=== PATIENT | female | born 1980 | race Caucasian/White ===

== ENCOUNTER → 2016-09-14 | Outpatient (CLI) | payer BC, MEDICAID | LOC: OD 07:40 | PROVIDERS: ATTEND Internal Medicine | DX: L65.9 Nonscarring hair loss, unspecified (principal) | CPT/HCPCS: 36415; 82728; 84443 ==

== ENCOUNTER → 2018-03-09 | Outpatient (CLI) | payer BC ==
[2018-03-09 10:06] LABS: ABSOLUTE EOSINOPHILS # (AUTO) 0.1 10^3/uL (0.0-0.6); ABSOLUTE LYMPHOCYTES (AUTO) 1.5 10^3/uL (0.5-4.7); ABSOLUTE MONOCYTES (AUTO) 0.3 10^3/uL (0.1-1.4); ABSOLUTE NEUT (AUTO) 1.3 10^3/uL (1.7-8.2); BASOPHILS % (AUTO) 0.9 % (0-2); EOSINOPHILS % (AUTO) 2.8 % (0-6); HEMATOCRIT 41.1 % (36.0-47.0); HEMOGLOBIN 14.1 g/dL (12.0-15.5); LYMPHOCYTES % (AUTO) 46.3 % (13-45); MEAN CORPUSCULAR HEMOGLOBIN 31.4 pg (27.0-33.4); MEAN CORPUSCULAR HGB CONC 34.3 g/dL (32.0-36.0); MEAN CORPUSCULAR VOLUME 92 fl (80-97); MONOCYTES % (AUTO) 10.2 % (3-13); PLATELET COUNT 215 10^3/uL (150-450); RED BLOOD COUNT 4.49 10^6/uL (3.72-5.28); RED CELL DISTRIBUTION WIDTH 13.2 % (11.5-14.0); SEGMENTED NEUTROPHILS % (AUTO) 39.8 % (42-78); TOTAL CELLS COUNTED % (AUTO) 100 %; WHITE BLOOD COUNT 3.2 10^3/uL (4.0-10.5)
[2018-03-09 10:35] LABS: ALANINE AMINOTRANSFERASE 18 U/L (9-52); ALBUMIN 4.3 g/dL (3.5-5.0); ALKALINE PHOSPHATASE 53 U/L (38-126); ANION GAP 12 (5-19); ASPARTATE AMINO TRANSFERASE 23 U/L (14-36); BILIRUBIN,DIRECT 0.2 mg/dL (0.0-0.4); BILIRUBIN,TOTAL 0.7 mg/dL (0.2-1.3); BLOOD UREA NITROGEN 13 mg/dL (7-20); CALCIUM 9.4 mg/dL (8.4-10.2); CARBON DIOXIDE 27 mmol/L (22-30); CHLORIDE 104 mmol/L (98-107); CHOLESTEROL 180.44 mg/dL (0-200); GLUCOSE 78 mg/dL (75-110); POTASSIUM 4.2 mmol/L (3.6-5.0); SODIUM 142.5 mmol/L (137-145); TOTAL PROTEIN 7.1 g/dL (6.3-8.2); TRIGLYCERIDES 72 mg/dL (<150); URIC ACID 3.7 mg/dL (2.5-7.0)
[2018-03-09 10:46] LABS: DIRECT LDL 86 mg/dL (<100)
[2018-03-09 10:50] LABS: FREE T3 3.27 pg/mL (2.77-5.27); FREE T4 (FREE THYROXINE) 1.14 ng/dL (0.78-2.19)
[2018-03-09 11:04] LABS: THYROID STIMULATING HORMONE 2.22 uIU/mL (0.47-4.68)
[2018-03-12 10:38] LABS: ANTICHROMATIN AB <0.2 AI (0.0-0.9); CENTROMERE B AB <0.2 AI (0.0-0.9); JO-1 ANTIBODY (ANACOMP) <0.2 AI (0.0-0.9); SJOGREN'S ANTI-SS-B AB 0.5 AI (0.0-0.9); SJOGREN'S SS-A ANTIBODY 1.3 AI (0.0-0.9)
[2018-03-13 07:05] LABS: DNA DOUBLE STRAND ANTIBODY ANA 4 IU/mL (0-9)
== END ==
LOC: OD 08:45
PROVIDERS: ATTEND Family Medicine Geriatric Medicine
DX: M94.0 Chondrocostal junction syndrome [Tietze] (principal); R07.9 Chest pain, unspecified; M25.50 Pain in unspecified joint; D64.9 Anemia, unspecified; Z79.899 Other long term (current) drug therapy; Z87.59 Personal history of other complications of pregnancy, childbirth and the puerperium; Z29.9 Encounter for prophylactic measures, unspecified; R63.5 Abnormal weight gain
CPT/HCPCS: 36415; 80053; 80061; 84439; 84443; 84481; 84550; 85025; 86060; 86225; 86235; 86430

== ENCOUNTER → 2018-03-19 | Outpatient (CLI) | payer BC ==
[2018-03-19 08:51] LABS: ABSOLUTE EOSINOPHILS # (AUTO) 0.3 10^3/uL (0.0-0.6); ABSOLUTE LYMPHOCYTES (AUTO) 1.6 10^3/uL (0.5-4.7); ABSOLUTE MONOCYTES (AUTO) 0.3 10^3/uL (0.1-1.4); ABSOLUTE NEUT (AUTO) 1.4 10^3/uL (1.7-8.2); BASOPHILS % (AUTO) 0.7 % (0-2); EOSINOPHILS % (AUTO) 7.9 % (0-6); HEMATOCRIT 40.2 % (36.0-47.0); HEMOGLOBIN 13.7 g/dL (12.0-15.5); LYMPHOCYTES % (AUTO) 43.8 % (13-45); MEAN CORPUSCULAR HEMOGLOBIN 31.5 pg (27.0-33.4); MEAN CORPUSCULAR HGB CONC 34.1 g/dL (32.0-36.0); MEAN CORPUSCULAR VOLUME 92 fl (80-97); MONOCYTES % (AUTO) 9.1 % (3-13); PLATELET COUNT 228 10^3/uL (150-450); RED BLOOD COUNT 4.36 10^6/uL (3.72-5.28); RED CELL DISTRIBUTION WIDTH 13.4 % (11.5-14.0); SEGMENTED NEUTROPHILS % (AUTO) 38.5 % (42-78); TOTAL CELLS COUNTED % (AUTO) 100 %; WHITE BLOOD COUNT 3.6 10^3/uL (4.0-10.5)
--- NOTE | 2018-03-19 21:57 | XCELERA REPORT ---
[address] [address] Transthoracic Echocardiogram Report Name: RACHAEL TIAN Age: 37 yrs Gender: Female : 1980 Patient Status: Outpatient Patient Location: Study Date: 03/19/2018 09:02 AM Procedure: A two-dimensional transthoracic echocardiogram with color flow and Doppler was performed. Images were not obtained from all of the standard acoustic windows due to the limited scope of the study. Reason For Study: SOB History: Shortness of breath. Ordering Physician: JULIA SAM Performed By: Marina Toro Interpretation Summary Images were not obtained from all of the standard acoustic windows due to the limited scope of the study. Shortness of breath The left ventricle is normal in size. There is normal left ventricular wall thickness. No True apical 2 chamber views obtained.Hence cannot comment on the apical anterior , the basal anterior, the basal inferior and apical inferior greenfield.The mid anterior , the mid inferior and the rest of the LV greenfield contract normally. .Normal LVEF is normal and is greater thn 60% in the limited views. Doppler measurements suggest normal left ventricular diastolic function There is no thrombus. There is no ventricular septal defect visualized. The right ventricle is normal in size and function. The right atrium is normal. The left atrial size is normal. The interatrial septum is intact with no evidence for an atrial septal defect. There is no evidence of mitral valve prolapse. There is no vegetation seen on the mitral valve. There is no mitral valve stenosis. There is no mitral regurgitation noted. The aortic valve is trileaflet. The aortic valve opens well. There is no aortic valvular vegetation. The aortic valve is normal in structure and functions normally There is no aortic valve stenosis There is no LVOT obstruction. No aortic regurgitation is present. There is no tricuspid stenosis. Right ventricular systolic pressure is normal. RVSP is 20 to 25 mm of Hg , with RA mean of 5 to 10. There is no pulmonic valvular stenosis. There is no pulmonic valvular regurgitation. The aortic root is normal size. The inferior vena cava appeared normal and decreased > 50% with respiration (RAP 5-10 mmHg) There is no pericardial effusion. MMode/2D Measurements & Calculations RVDd: 2.7 cm LVIDd: 4.6 cm FS: 39.8 % Ao root diam: 2.9 cm IVSd: 0.62 cm LVIDs: 2.8 cm EDV(Teich): 97.6 ml Ao root area: 6.7 cm2 LVPWd: 0.89 cm ESV(Teich): 28.9 ml EF(Teich): 70.4 % Doppler Measurements & Calculations MV E max audra: MV dec slope: Ao V2 max: LV V1 max P.7 cm/sec 116.1 cm/sec 4.2 mmHg MV A max audra: 687.7 cm/sec2 Ao max PG: LV V1 max: 47.5 cm/sec MV dec time: 0.16 sec5.4 mmHg 102.9 cm/sec MV E/A: 2.3 PA V2 max: TR max audra: 83.3 cm/sec 192.3 cm/sec PA max P.8 mmHg TR max P.8 mmHg Left Ventricle The left ventricle is normal in size. There is normal left ventricular wall thickness. No True apical 2 chamber views obtained.Hence cannot comment on the apical anterior , the basal anterior, the basal inferior and apical inferior greenfield.The mid anterior , the mid inferior and the rest of the LV greenfield contract normally. .Normal LVEF is normal and is greater thn 60% in the limited views. Doppler measurements suggest normal left ventricular diastolic function. There is no thrombus. There is no ventricular septal defect visualized. Right Ventricle The right ventricle is normal in size and function. Atria The right atrium is normal. The left atrial size is normal. The interatrial septum is intact with no evidence for an atrial septal defect. Mitral Valve There is no evidence of mitral valve prolapse. There is no vegetation seen on the mitral valve. There is no mitral valve stenosis. There is no mitral regurgitation noted. Aortic Valve The aortic valve is trileaflet. The aortic valve opens well. The aortic valve is normal in structure and functions normally. There is no aortic valvular vegetation. There is no aortic valve stenosis. There is no LVOT obstruction. No aortic regurgitation is present. Tricuspid Valve There is no tricuspid stenosis. There is a trace amount of tricuspid regurgitation. Right ventricular systolic pressure is normal. RVSP is 20 to 25 mm of Hg , with RA mean of 5 to 10. Pulmonic Valve There is no pulmonic valvular stenosis. There is no pulmonic valvular regurgitation. Great Vessels The aortic root is normal size. The inferior vena cava appeared normal and decreased > 50% with respiration (RAP 5-10 mmHg). Effusions There is no pericardial effusion. : JULIA SAM > Perlita, Eleanor
== END ==
LOC: SP 07:55
PROVIDERS: ATTEND Family Medicine Geriatric Medicine
DX: R06.02 Shortness of breath (principal); R79.89 Other specified abnormal findings of blood chemistry
CPT/HCPCS: 36415; 85025; 93306

== ENCOUNTER → 2018-03-27 | Outpatient (CLI) | payer BC ==
[2018-03-27 12:50] LABS: ABSOLUTE EOSINOPHILS # (AUTO) 0.1 10^3/uL (0.0-0.6); ABSOLUTE LYMPHOCYTES (AUTO) 1.8 10^3/uL (0.5-4.7); ABSOLUTE MONOCYTES (AUTO) 0.3 10^3/uL (0.1-1.4); ABSOLUTE NEUT (AUTO) 1.5 10^3/uL (1.7-8.2); BASOPHILS % (AUTO) 1.1 % (0-2); EOSINOPHILS % (AUTO) 3.1 % (0-6); HEMATOCRIT 39.8 % (36.0-47.0); HEMOGLOBIN 13.5 g/dL (12.0-15.5); LYMPHOCYTES % (AUTO) 48.1 % (13-45); MEAN CORPUSCULAR HEMOGLOBIN 31.1 pg (27.0-33.4); MEAN CORPUSCULAR HGB CONC 33.9 g/dL (32.0-36.0); MEAN CORPUSCULAR VOLUME 92 fl (80-97); MONOCYTES % (AUTO) 8.8 % (3-13); PLATELET COUNT 235 10^3/uL (150-450); RED BLOOD COUNT 4.33 10^6/uL (3.72-5.28); RED CELL DISTRIBUTION WIDTH 13.4 % (11.5-14.0); SEGMENTED NEUTROPHILS % (AUTO) 38.9 % (42-78); TOTAL CELLS COUNTED % (AUTO) 100 %; WHITE BLOOD COUNT 3.8 10^3/uL (4.0-10.5)
[2018-03-27 12:55] LABS: APPEARANCE,URINE CLOUDY; BILIRUBIN,URINE NEGATIVE (NEGATIVE); COLOR,URINE YELLOW; GLUCOSE, URINE NEGATIVE (NEGATIVE); KETONES,URINE NEGATIVE (NEGATIVE); LEUKOCYTE ESTERASE,URINE SMALL (NEGATIVE); NITRITE,URINE NEGATIVE (NEGATIVE); PROTEIN,URINE 30 mg/dL (NEGATIVE); URINE SPECIFIC GRAVITY 1.026; UROBILINOGEN,URINE NEGATIVE mg/dL (<2.0)
[2018-03-27 13:21] LABS: ALANINE AMINOTRANSFERASE 15 U/L (9-52); ALBUMIN 4.5 g/dL (3.5-5.0); ALKALINE PHOSPHATASE 53 U/L (38-126); ANION GAP 8 (5-19); ASPARTATE AMINO TRANSFERASE 20 U/L (14-36); BILIRUBIN,DIRECT 0.1 mg/dL (0.0-0.4); BILIRUBIN,TOTAL 0.3 mg/dL (0.2-1.3); BLOOD UREA NITROGEN 14 mg/dL (7-20); CALCIUM 9.5 mg/dL (8.4-10.2); CARBON DIOXIDE 27 mmol/L (22-30); CHLORIDE 105 mmol/L (98-107); CREATINE KINASE 39 U/L (30-135); GLUCOSE 103 mg/dL (75-110); POTASSIUM 4.1 mmol/L (3.6-5.0); SODIUM 139.6 mmol/L (137-145); TOTAL PROTEIN 7.2 g/dL (6.3-8.2)
[2018-03-27 13:25] LABS: C-REACTIVE PROTEIN < 5.0 mg/L (<10.0)
[2018-03-27 13:34] LABS: ERYTHROCYTE SEDIMENTATION RATE 7 mm/hr (0-20)
[2018-03-28 08:40] LABS: COMPLEMENT C4 13 mg/dL (14-44)
[2018-03-28 11:16] LABS: ALDOLASE 2.4 U/L (3.3-10.3); COMPLEMENT C3 127 mg/dL (82-167); COMPLEMENT TOTAL (CH50) >60 U/mL (>41)
== END ==
LOC: LAB 12:11
PROVIDERS: ATTEND Internal Medicine Rheumatology
DX: M25.50 Pain in unspecified joint (principal); R32 Unspecified urinary incontinence; M06.4 Inflammatory polyarthropathy; M35.00 Sjogren syndrome, unspecified; R09.1 Pleurisy
CPT/HCPCS: 36415; 80053; 81001; 82085; 82550; 85025; 85652; 86140; 86147; 86160; 86162

== ENCOUNTER → 2018-04-15 | Outpatient (CLI) | payer BC ==
--- NOTE | 2018-04-15 18:25 | RADIOLOGY REPORT (SQ) ---
EXAM DESCRIPTION: ANKLE LEFT COMPLETE COMPLETED DATE/TIME: 04/15/2018 6:10 pm REASON FOR STUDY: LEFT FOOT AND LEFT ANKLE PAIN COMPARISON: None. NUMBER OF VIEWS: Three views. TECHNIQUE: AP, lateral, and oblique radiographic images acquired of the left ankle. LIMITATIONS: None. FINDINGS: MINERALIZATION: Normal. BONES: No acute fracture or dislocation. No worrisome bone lesions. JOINTS: No effusions. SOFT TISSUES: No soft tissue swelling. No foreign body. OTHER: No other significant finding. IMPRESSION: NEGATIVE STUDY OF THE LEFT ANKLE. NO RADIOGRAPHIC EVIDENCE OF ACUTE INJURY. TECHNICAL DOCUMENTATION: JOB ID: [id number] [employer]- All Rights Reserved Reading location - IP/workstation name: [email or web address]
--- NOTE | 2018-04-15 18:26 | RADIOLOGY REPORT (SQ) ---
EXAM DESCRIPTION: FOOT LEFT COMPLETE COMPLETED DATE/TIME: 04/15/2018 6:10 pm REASON FOR STUDY: LEFT FOOT AND LEFT ANKLE PAIN COMPARISON: None. NUMBER OF VIEWS: Three views. TECHNIQUE: AP, lateral and oblique radiographic images acquired of the left foot. LIMITATIONS: None. FINDINGS: MINERALIZATION: Normal. BONES: No acute fracture or dislocation. No worrisome bone lesions. JOINTS: No effusions. SOFT TISSUES: No soft tissue swelling. No foreign body. OTHER: No other significant finding. IMPRESSION: NEGATIVE STUDY OF THE LEFT FOOT. NO RADIOGRAPHIC EVIDENCE OF ACUTE INJURY. TECHNICAL DOCUMENTATION: JOB ID: [id number] [employer]- All Rights Reserved Reading location - IP/workstation name: [email or web address]
== END ==
LOC: RAD 17:28
PROVIDERS: ATTEND Family Medicine Geriatric Medicine
DX: M79.672 Pain in left foot (principal); M25.572 Pain in left ankle and joints of left foot

== ENCOUNTER → 2018-06-21 | Outpatient (CLI) | payer BC ==
[2018-06-21 17:34] LABS: ABSOLUTE EOSINOPHILS # (AUTO) 0.1 10^3/uL (0.0-0.6); ABSOLUTE LYMPHOCYTES (AUTO) 1.9 10^3/uL (0.5-4.7); ABSOLUTE MONOCYTES (AUTO) 0.4 10^3/uL (0.1-1.4); BASOPHILS % (AUTO) 0.5 % (0-2); EOSINOPHILS % (AUTO) 3.2 % (0-6); HEMATOCRIT 40.3 % (36.0-47.0); HEMOGLOBIN 13.7 g/dL (12.0-15.5); LYMPHOCYTES % (AUTO) 41.9 % (13-45); MEAN CORPUSCULAR HEMOGLOBIN 31.5 pg (27.0-33.4); MEAN CORPUSCULAR HGB CONC 34.1 g/dL (32.0-36.0); MEAN CORPUSCULAR VOLUME 92 fl (80-97); MONOCYTES % (AUTO) 9.1 % (3-13); PLATELET COUNT 285 10^3/uL (150-450); RED BLOOD COUNT 4.37 10^6/uL (3.72-5.28); RED CELL DISTRIBUTION WIDTH 12.8 % (11.5-14.0); SEGMENTED NEUTROPHILS % (AUTO) 45.3 % (42-78); TOTAL CELLS COUNTED % (AUTO) 100 %; WHITE BLOOD COUNT 4.5 10^3/uL (4.0-10.5)
[2018-06-21 17:43] LABS: APPEARANCE,URINE CLEAR; BILIRUBIN,URINE NEGATIVE (NEGATIVE); COLOR,URINE STRAW; GLUCOSE, URINE NEGATIVE (NEGATIVE); KETONES,URINE NEGATIVE (NEGATIVE); LEUKOCYTE ESTERASE,URINE NEGATIVE (NEGATIVE); NITRITE,URINE NEGATIVE (NEGATIVE); PROTEIN,URINE NEGATIVE (NEGATIVE); URINE SPECIFIC GRAVITY 1.006; UROBILINOGEN,URINE NEGATIVE mg/dL (<2.0)
[2018-06-21 17:55] LABS: ALANINE AMINOTRANSFERASE 19 U/L (9-52); ALBUMIN 4.5 g/dL (3.5-5.0); ALKALINE PHOSPHATASE 57 U/L (38-126); ANION GAP 9 (5-19); ASPARTATE AMINO TRANSFERASE 25 U/L (14-36); BILIRUBIN,DIRECT 0.2 mg/dL (0.0-0.4); BILIRUBIN,TOTAL 0.5 mg/dL (0.2-1.3); BLOOD UREA NITROGEN 11 mg/dL (7-20); C-REACTIVE PROTEIN 5.1 mg/L (<10.0); CALCIUM 9.7 mg/dL (8.4-10.2); CARBON DIOXIDE 27 mmol/L (22-30); CHLORIDE 103 mmol/L (98-107); CREATINE KINASE 73 U/L (30-135); GLUCOSE 82 mg/dL (75-110); POTASSIUM 3.8 mmol/L (3.6-5.0); SODIUM 139.2 mmol/L (137-145); TOTAL PROTEIN 7.3 g/dL (6.3-8.2)
[2018-06-21 18:16] LABS: ERYTHROCYTE SEDIMENTATION RATE 7 mm/hr (0-20)
== END ==
LOC: OD 16:34
PROVIDERS: ATTEND Internal Medicine Rheumatology
DX: M32.10 Systemic lupus erythematosus, organ or system involvement unspecified (principal)
CPT/HCPCS: 36415; 80053; 81001; 82550; 85025; 85652; 86140; 86225

== ENCOUNTER → 2018-09-13 | Outpatient (CLI) | payer BC ==
[2018-09-13 13:33] LABS: ABSOLUTE EOSINOPHILS # (AUTO) 0.2 10^3/uL (0.0-0.6); ABSOLUTE LYMPHOCYTES (AUTO) 1.4 10^3/uL (0.5-4.7); ABSOLUTE MONOCYTES (AUTO) 0.5 10^3/uL (0.1-1.4); ABSOLUTE NEUT (AUTO) 2.8 10^3/uL (1.7-8.2); BASOPHILS % (AUTO) 0.6 % (0-2); HEMOGLOBIN 14.6 g/dL (12.0-15.5); LYMPHOCYTES % (AUTO) 27.7 % (13-45); MEAN CORPUSCULAR HEMOGLOBIN 30.7 pg (27.0-33.4); MEAN CORPUSCULAR HGB CONC 33.3 g/dL (32.0-36.0); MEAN CORPUSCULAR VOLUME 92 fl (80-97); MONOCYTES % (AUTO) 10.3 % (3-13); PLATELET COUNT 241 10^3/uL (150-450); RED BLOOD COUNT 4.77 10^6/uL (3.72-5.28); RED CELL DISTRIBUTION WIDTH 13.1 % (11.5-14.0); SEGMENTED NEUTROPHILS % (AUTO) 56.4 % (42-78); TOTAL CELLS COUNTED % (AUTO) 100 %
[2018-09-13 13:35] LABS: APPEARANCE,URINE CLEAR; BILIRUBIN,URINE NEGATIVE (NEGATIVE); COLOR,URINE STRAW; GLUCOSE, URINE NEGATIVE (NEGATIVE); KETONES,URINE NEGATIVE (NEGATIVE); LEUKOCYTE ESTERASE,URINE NEGATIVE (NEGATIVE); NITRITE,URINE NEGATIVE (NEGATIVE); PROTEIN,URINE NEGATIVE (NEGATIVE); URINE SPECIFIC GRAVITY 1.006; UROBILINOGEN,URINE NEGATIVE mg/dL (<2.0)
[2018-09-13 14:00] LABS: ALANINE AMINOTRANSFERASE 12 U/L (9-52); ALBUMIN 4.8 g/dL (3.5-5.0); ALKALINE PHOSPHATASE 47 U/L (38-126); ANION GAP 10 (5-19); ASPARTATE AMINO TRANSFERASE 19 U/L (14-36); BILIRUBIN,DIRECT 0.3 mg/dL (0.0-0.4); BILIRUBIN,TOTAL 0.5 mg/dL (0.2-1.3); BLOOD UREA NITROGEN 14 mg/dL (7-20); CALCIUM 9.9 mg/dL (8.4-10.2); CARBON DIOXIDE 31 mmol/L (22-30); CHLORIDE 99 mmol/L (98-107); CREATINE KINASE 36 U/L (30-135); GLUCOSE 83 mg/dL (75-110); POTASSIUM 4.4 mmol/L (3.6-5.0); SODIUM 140.4 mmol/L (137-145); TOTAL PROTEIN 7.8 g/dL (6.3-8.2)
[2018-09-13 14:10] LABS: C-REACTIVE PROTEIN < 5.0 mg/L (<10.0); ERYTHROCYTE SEDIMENTATION RATE 6 mm/hr (0-20)
== END ==
LOC: OD 12:24
PROVIDERS: ATTEND Internal Medicine Rheumatology
DX: I73.00 Raynaud's syndrome without gangrene (principal); M32.10 Systemic lupus erythematosus, organ or system involvement unspecified; E55.9 Vitamin D deficiency, unspecified; R76.0 Raised antibody titer; R09.1 Pleurisy; Z79.899 Other long term (current) drug therapy
CPT/HCPCS: 36415; 80053; 81001; 82306; 82550; 85025; 85652; 86140; 86225

== ENCOUNTER → 2018-10-24 | Outpatient (CLI) | payer BC ==
--- NOTE | 2018-10-24 14:15 | RADIOLOGY REPORT (SQ) ---
EXAM DESCRIPTION: KNEE LEFT 4 VIEW COMPLETED DATE/TIME: 10/24/2018 11:17 am REASON FOR STUDY: PAIN IN UNSPECIFIED KNEE (M25.569) M25.569 PAIN IN UNSPECIFIED KNEE COMPARISON: None. NUMBER OF VIEWS: Four views. TECHNIQUE: AP, lateral, and both oblique radiographic images acquired of the left knee. LIMITATIONS: None. FINDINGS: MINERALIZATION: Normal. BONES: No acute fracture or dislocation. No worrisome bone lesions. JOINT: No effusion. SOFT TISSUES: No soft tissue swelling. No radio-opaque foreign body. OTHER: No other significant finding. IMPRESSION: NEGATIVE STUDY OF THE LEFT KNEE. NO RADIOGRAPHIC EVIDENCE OF ACUTE INJURY. TECHNICAL DOCUMENTATION: JOB ID: [id number] [employer]- All Rights Reserved Reading location - IP/workstation name: [email or web address]
== END ==
LOC: RAD 10:39
PROVIDERS: ATTEND Orthopaedic Surgery
DX: M25.569 Pain in unspecified knee (principal); M25.562 Pain in left knee

== ENCOUNTER → 2018-10-26 | Outpatient (CLI) | payer BC ==
--- NOTE | 2018-10-26 22:00 | RADIOLOGY REPORT (SQ) ---
EXAM DESCRIPTION: MRI LT LOWER JOINT WITHOUT COMPLETED DATE/TIME: 10/26/2018 2:38 pm REASON FOR STUDY: (M25.569)PAIN IN UNSPECIFIED KNEE M25.569 PAIN IN UNSPECIFIED KNEE COMPARISON: 10/24/2017 radiographs. TECHNIQUE: Leftknee images acquired and stored on PACS. Multiplanar images include fat sensitive se quences as T1, water sensitive sequences as FST2 or STIR, cartilage sensitive sequences as FSPD, and gradient echo sequences. LIMITATIONS: None. FINDINGS: JOINT AND BURSAE: No effusion. BONE CORTEX AND MARROW: Mild marrow edema in the far posterosuperior aspect of the medial femoral con dyles. Likely related to tendinosis and partial tear along the medial gastrocnemius. ACL: Intact. No degeneration or ganglion cyst. PCL: Intact. MCL: Intact. No periligamentous edema or fluid. LCL: Intact. No periligamentous edema or fluid. MEDIAL MENISCUS: No tears. No abnormal signal. LATERAL MENISCUS: No tears. No abnormal signal. MEDIAL COMPARTMENT: Cartilage preserved. No bone bruises or reactive marrow edema. No osteophytes. LATERAL COMPARTMENT: Cartilage preserved. No bone bruises or reactive marrow edema. No osteophytes. PATELLA: No chondromalacia. No subchondral cysts. Medial and lateral retinacula intact. EXTENSOR MECHANISM: Quadriceps tendinosis. Patellar tendon intact. SOFT TISSUES: As above. Mild deep soft tissue edema adjacent to the medial femoral condyle edema. OTHER: No other significant finding. IMPRESSION: 1. Tendinosis and probable partial tear in the medial gastrocnemius tendon. Associated reactive bone marrow changes. TECHNICAL DOCUMENTATION: JOB ID: [id number] [employer]- All Rights Reserved Reading location - IP/workstation name: [email or web address]
== END ==
LOC: RAD 14:03
PROVIDERS: ATTEND Orthopaedic Surgery
DX: M25.562 Pain in left knee (principal)

== ENCOUNTER 2019-04-10 09:58 | Day surgery (SDC) | payer BC ==
[2019-04-07 09:50] LABS: HEMATOCRIT 40.9 % (36.0-47.0); HEMOGLOBIN 13.8 g/dL (12.0-15.5); MEAN CORPUSCULAR HEMOGLOBIN 31.3 pg (27.0-33.4); MEAN CORPUSCULAR HGB CONC 33.8 g/dL (32.0-36.0); MEAN CORPUSCULAR VOLUME 93 fl (80-97); PLATELET COUNT 227 10^3/uL (150-450); RED BLOOD COUNT 4.41 10^6/uL (3.72-5.28); RED CELL DISTRIBUTION WIDTH 13.5 % (11.5-14.0); WHITE BLOOD COUNT 3.8 10^3/uL (4.0-10.5)
[2019-04-07 09:53] LABS: APPEARANCE,URINE CLEAR; BILIRUBIN,URINE NEGATIVE (NEGATIVE); COLOR,URINE YELLOW; GLUCOSE, URINE NEGATIVE (NEGATIVE); KETONES,URINE TRACE mg/dL (NEGATIVE); LEUKOCYTE ESTERASE,URINE TRACE (NEGATIVE); NITRITE,URINE NEGATIVE (NEGATIVE); PROTEIN,URINE NEGATIVE (NEGATIVE); URINE SPECIFIC GRAVITY 1.016; UROBILINOGEN,URINE NEGATIVE mg/dL (<2.0)
[~2019-04-10 09:58] MED LIST: GLYCOPYRROLATE 1 MG/5 ML VIAL ONE; LACTATED RINGERS 1000 ML IV PRN; LIDOCAINE 0.5% INJ-PF (5 MG/ML) 50 ML SDV SUBCUT PRN; NEOSTIGMINE METHYLSULFATE 10 MG/10 ML VIAL ONE; PHENYLEPHRINE HCL INJ/PF 10 MG/1 ML SDV ONE; ROCURONIUM BROMIDE INJ 50 MG/5 ML VIAL IV ONE; SUCCINYLCHOLINE CHLORIDE INJ 200 MG/10 ML VIAL ONE
[2019-04-10] MEDS ORDERED: DEXAMETHASONE SOD PHOSPHATE INJ 4 MG/1 ML VIAL ONE (10:19)
[2019-04-10] MEDS ORDERED: MIDAZOLAM 2 MG/2 ML INJ ONE (10:19)
[2019-04-10] MEDS ORDERED: FENTANYL CITRATE INJ/PF 100 MCG/2 ML AMPUL ONE (10:19)
[2019-04-10] MEDS ORDERED: PROPOFOL INJ 200 MG/20 ML VIAL IV ONE (10:19)
[2019-04-10] MEDS ORDERED: MORPHINE SULFATE 10 MG/ML INJ ONE (10:19)
[2019-04-10] MEDS ORDERED: ONDANSETRON HCL INJ/PF 4 MG/2 ML SDV ONE (10:19)
[2019-04-10] MEDS ORDERED: SCOPOLAMINE HYDROBROMIDE 1.5 MG PATCH.TD72 ONE (10:26)
[2019-04-10] MEDS ORDERED: FAMOTIDINE INJ/PF 20 MG/2 ML SDV IV ONE (10:27)
[2019-04-10] MEDS: FENTANYL CITRATE INJ/PF 100 MCG/2 ML AMPUL ONE ×2 (11:59→12:15)
[2019-04-10] MEDS ORDERED: KETOROLAC TROMETHAMINE INJ/PF 30 MG/1 ML SDV ONE (11:59)
[2019-04-10] MEDS ORDERED: KETOROLAC TROMETHAMINE INJ/PF 30 MG/1 ML SDV IV ONE (12:00)
--- NOTE | 2019-04-10 12:08 | Operative Report ---
Operative Report DATE OF SURGERY: 04/10/19 PREOPERATIVE DIAGNOSIS: Undesired fertility POSTOPERATIVE DIAGNOSIS: Same OPERATION: Laparoscopic tubal cauterization SURGEON: KAREN ALEXIS ANESTHESIA: GA TISSUE REMOVED OR ALTERED: None COMPLICATIONS: None ESTIMATED BLOOD LOSS: 10 cc INTRAOPERATIVE FINDINGS: Normal uterus tubes and ovaries PROCEDURE: Patient was taken to the operating room prepared and draped in normal sterile fashion in dorsolithotomy position. Under sterile conditions and in and out cath was performed of approximately 30 cc of clear urine. A sterile speculum was then placed into the vagina the cervix was grasped with a single-tooth tenaculum on the anterior lip. A Hulka clamp was placed to the cervix for uterine manipulation without difficulty. The tenaculum and speculum were then removed. Change in attention was turned to the upper portion of the case where the umbilical skin incision was made. A varies needle was introduced through this incision and the abdomen was inflated with approximately 2 L of CO2 gas. Needle was removed and a 5 mm port was placed through the incision. The camera was introduced and the patient was placed in Trendelenburg with the above findings noted. Another 5 mm port was placed in the left lower quadrant. A blunt probe was introduced through this port and the bowel was swept away. A Kleppinger was then introduced through that port and beginning with the left fallopian tube the left fallopian tube was cauterized with approximately 3-1/2 cm. The occlusion was felt to be more than adequate. Repeated on the right fallopian tube without difficulty. Then removed and the abdomen was deflated through the umbilical port. Port sites were closed with 4-0 Vicryl. To recovery stable condition sponge lap and needle counts were correct x2..
[2019-04-10] MEDS ORDERED: OXYCODONE-ACETAMINOPHEN 5-325 MG TABLET ONE (13:15)
[2019-04-10 14:19] VITALS: BP 96/64
[2019-04-10] MEDS ORDERED: DIPHENHYDRAMINE HCL 50 MG/ML VIAL IV PRN (16:31)
[2019-04-10] MEDS ORDERED: FENTANYL CITRATE INJ/PF 100 MCG/2 ML AMPUL IV PRN ×3 (16:31)
[2019-04-10] MEDS ORDERED: MORPHINE SULFATE 10 MG/ML INJ IV PRN (16:31)
[2019-04-10] MEDS ORDERED: MEPERIDINE HCL/PF INJ 25 MG/1 ML DISP.SYRIN IV PRN (16:31)
[2019-04-10] MEDS ORDERED: PROMETHAZINE HCL INJ 25 MG/1 ML VIAL IV PRN (16:31)
== END 2019-04-10 14:18 | disposition home or self-care (01) ==
LOC: OROUT 09:58
PROVIDERS: ATTEND Obstetrics & Gynecology
DX: Z30.2 Encounter for sterilization (principal); Z79.899 Other long term (current) drug therapy; Z88.2 Allergy status to sulfonamides; Z88.8 Allergy status to other drugs, medicaments and biological substances; M32.9 Systemic lupus erythematosus, unspecified
CPT/HCPCS: 86900; 86901; 36415 ×2; 86850; 85027; 81005; 81025; 00851; 58670; J2250; J3490 ×2; J1100; J3010; J1885; J2270; J2710; J2370; J0330; J2405; J2704; S0028; 851

== ENCOUNTER → 2019-04-12 | Outpatient (CLI) | payer BC ==
[2019-04-12 10:58] LABS: APPEARANCE,URINE CLEAR; BILIRUBIN,URINE NEGATIVE (NEGATIVE); COLOR,URINE YELLOW; GLUCOSE, URINE NEGATIVE (NEGATIVE); KETONES,URINE NEGATIVE (NEGATIVE); LEUKOCYTE ESTERASE,URINE NEGATIVE (NEGATIVE); NITRITE,URINE NEGATIVE (NEGATIVE); PROTEIN,URINE NEGATIVE (NEGATIVE); URINE SPECIFIC GRAVITY 1.017; UROBILINOGEN,URINE NEGATIVE mg/dL (<2.0)
[2019-04-12 11:03] LABS: ABSOLUTE EOSINOPHILS # (AUTO) 0.1 10^3/uL (0.0-0.6); ABSOLUTE LYMPHOCYTES (AUTO) 1.6 10^3/uL (0.5-4.7); ABSOLUTE MONOCYTES (AUTO) 0.3 10^3/uL (0.1-1.4); ABSOLUTE NEUT (AUTO) 1.7 10^3/uL (1.7-8.2); BASOPHILS % (AUTO) 0.8 % (0-2); EOSINOPHILS % (AUTO) 3.8 % (0-6); HEMATOCRIT 39.6 % (36.0-47.0); HEMOGLOBIN 13.6 g/dL (12.0-15.5); MEAN CORPUSCULAR HEMOGLOBIN 31.7 pg (27.0-33.4); MEAN CORPUSCULAR HGB CONC 34.4 g/dL (32.0-36.0); MEAN CORPUSCULAR VOLUME 92 fl (80-97); MONOCYTES % (AUTO) 8.5 % (3-13); PLATELET COUNT 230 10^3/uL (150-450); RED BLOOD COUNT 4.29 10^6/uL (3.72-5.28); RED CELL DISTRIBUTION WIDTH 13.4 % (11.5-14.0); SEGMENTED NEUTROPHILS % (AUTO) 44.9 % (42-78); TOTAL CELLS COUNTED % (AUTO) 100 %; WHITE BLOOD COUNT 3.7 10^3/uL (4.0-10.5)
[2019-04-12 11:22] LABS: ALBUMIN 4.1 g/dL (3.5-5.0); ALKALINE PHOSPHATASE 46 U/L (38-126); ANION GAP 8 (5-19); ASPARTATE AMINO TRANSFERASE 28 U/L (14-36); BILIRUBIN,DIRECT 0.2 mg/dL (0.0-0.4); BILIRUBIN,TOTAL 0.4 mg/dL (0.2-1.3); BLOOD UREA NITROGEN 13 mg/dL (7-20); CALCIUM 9.1 mg/dL (8.4-10.2); CARBON DIOXIDE 29 mmol/L (22-30); CHLORIDE 101 mmol/L (98-107); CREATINE KINASE 67 U/L (30-135); GLUCOSE 75 mg/dL (75-110); POTASSIUM 4.3 mmol/L (3.6-5.0)
[2019-04-12 11:28] LABS: C-REACTIVE PROTEIN < 5.0 mg/L (<10.0)
[2019-04-12 11:45] LABS: ERYTHROCYTE SEDIMENTATION RATE 9 mm/hr (0-20)
== END ==
LOC: OD 09:09
PROVIDERS: ATTEND Internal Medicine Rheumatology
DX: I73.00 Raynaud's syndrome without gangrene (principal); E55.9 Vitamin D deficiency, unspecified; R09.1 Pleurisy; R76.0 Raised antibody titer; M32.10 Systemic lupus erythematosus, organ or system involvement unspecified; Z79.899 Other long term (current) drug therapy
CPT/HCPCS: 36415; 80053; 81001; 82306; 82550; 85025; 85652; 86140; 86225

== ENCOUNTER 2019-07-25 13:11 | Emergency (ER) | payer BC ==
--- NOTE | 2019-07-25 14:30 | ER Document Report ---
ED General - General Chief Complaint: Chest Pain Stated Complaint: COUGH Primary Care Provider: JULIA SAM MD [Primary Care Provider] - Follow up as needed Notes: Patient is a 39-year-old white female with a past medical history of lupus on Plaquenil who presents to the emergency department with a chief complaint of cough that began about a month ago. She states on June 26 she began developing a respiratory illness. She states at that time she was having some fevers and a productive cough. She states that she quarantined at home for 14 days and did get better but feels like the cough never completely resolved. She states last night the cough seemed to intensify. She states it is now a dry cough. She reports associated with some heart palpitations/heart racing episodes. She states while at work today she became dizzy, sat down checked her O2 sats and reports they were in the high 80s around 86. She states her heart rate was subsequently increased at that time as well. She admits to a tightness in the chest with denies chest pain. No new or known fevers. 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 She is been working with a mask on through this cough. She states that they have had several patients with coronavirus suspicious symptoms. She reports several negative tests in a few still pending. She has not yet been tested for the coronavirus. She was sent here by her employer for testing. She denies any vomiting or diarrhea. No abdominal pain. TRAVEL OUTSIDE OF THE [place] IN LAST 30 DAYS: No - Related Data Allergies/Adverse Reactions: levofloxacin [From Levaquin] Allergy (Verified 04/10/19 10:08) Swollen tongue Sulfa (Sulfonamide Antibiotics) Allergy (Verified 04/10/19 10:08) tramadol [From Ultram] Adverse Reaction (Verified 04/10/19 10:08) Vomiting Past Medical History - Social History Smoking Status: Never Smoker Frequency of alcohol use: None Drug Abuse: None Family History: Reviewed & Not Pertinent Patient has suicidal ideation: No Patient has homicidal ideation: No - Past Medical History Cardiac Medical History: Denies: Hx Coronary Artery Disease, Hx Heart Attack, Hx Hypertension Pulmonary Medical History: Denies: Hx Asthma, Hx Bronchitis, Hx COPD, Hx Pneumonia Neurological Medical History: Denies: Hx Cerebrovascular Accident, Hx Seizures Musculoskeletal Medical History: Denies Hx Arthritis Past Surgical History: Reports: Hx Tubal Ligation - Immunizations Hx Diphtheria, Pertussis, Tetanus Vaccination: Yes Review of Systems - Review of Systems Cardiovascular: Palpitations, Heart racing, Dizziness Respiratory: Cough, Short of breath -: Yes All other systems reviewed and negative Physical Exam - Vital signs Vitals: Temp Pulse Resp BP Pulse Ox 98.4 F 78 16 128/79 H 97 07/25/19 13:11 07/25/19 13:11 07/25/19 13:11 07/25/19 13:11 07/25/19 13:11 - General General appearance: Appears well, Alert In distress: None Notes: Nontoxic - HEENT Head: Normocephalic, Atraumatic Eyes: Normal Conjunctiva: Normal Extraocular movements intact: Yes Eyelashes: Normal Pupils: PERRL Ears: Normal External canal: Normal Tympanic membrane: Normal Nasal: Normal Mouth/Lips: Normal Mucous membranes: Normal Pharynx: Normal Neck: Normal, Supple - Respiratory Respiratory status: No respiratory distress Chest status: Nontender Breath sounds: Normal Chest palpation: Normal Notes: Dry cough heard on exam - Cardiovascular Rhythm: Regular Heart sounds: Normal auscultation - Extremities General upper extremity: Normal inspection, Nontender, Normal color, Normal ROM, Normal temperature General lower extremity: Normal inspection, Nontender, Normal color, Normal ROM, Normal temperature, Normal weight bearing. No: Addison's sign - Neurological Neuro grossly intact: Yes Cognition: Normal Orientation: AAOx4 - Psychological Associated symptoms: Normal affect, Normal mood - Skin Skin Temperature: Warm Skin Moisture: Dry Skin Color: Normal Course - Re-evaluation Re-evalutation: 07/25/19 15:09 EK, sinus rhythm at 68 bpm. Normal intervals. No STEMI. Nonspecific ST-T wave changes. Interpreted by ED attending. 07/25/19 16:07 EKG showing no dysrhythmia. Troponin negative. Work-up largely unremarkable. She has a normal CRP and flu and strep are negative. Chest x-ray negative for any acute process per radiologist. 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 She is pending a coronavirus test at this time and will self isolate as what a patient under investigation. We discussed her quarantine measures. She will quarantined until she receives a negative result. She is in no acute distress. Stable and appropriate for discharge and outpatient follow-up. Counseled her regarding the importance of follow-up and advised she return here or any ER immediately with any new, persistent or worsening symptoms. She verbalized understood and agreed. - Vital Signs Vital signs: Temp Pulse Resp BP Pulse Ox 98.4 F 78 16 128/79 H 97 07/25/19 13:11 07/25/19 13:11 07/25/19 13:11 07/25/19 13:11 07/25/19 13:11 - Laboratory Result Diagrams: 07/25/19 15:02 07/25/19 15:02 Discharge - Discharge Clinical Impression: PUI for COVID-19, Cough Condition: Stable Disposition: HOME, SELF-CARE Instructions: Cough Suppressant & Expectorant Medications Additional Instructions: You have been deemed a patient under investigation for COVID-19. Your test is pending. Please self isolate/quarantine in your home until you receive a negative result or if a positive result is found until you are 72 hours symptom- free or 14 days which ever occurs first. Please return here or any ER immediately with any new, persistent or worsening symptoms. Referrals: JULIA SAM MD [Primary Care Provider] - Follow up as needed
--- NOTE | 2019-07-25 15:04 | RADIOLOGY REPORT (SQ) ---
EXAM DESCRIPTION: CHEST SINGLE VIEW IMAGES COMPLETED DATE/TIME: 07/25/2019 2:50 pm REASON FOR STUDY: cough COMPARISON: None. EXAM PARAMETERS: NUMBER OF VIEWS: One view. TECHNIQUE: An AP view of the chest was obtained. RADIATION DOSE: NA LIMITATIONS: None. FINDINGS: LUNGS AND PLEURA: No consolidation, pleural effusion or pneumothorax. MEDIASTINUM AND HILAR STRUCTURES: No mediastinal or hilar contour abnormality. HEART AND VASCULAR STRUCTURES: The cardiac silhouette and pulmonary vasculature are within normal elaine its. BONES: No acute findings. HARDWARE: None in the chest. OTHER: No other finding. IMPRESSION: No acute cardiopulmonary process. TECHNICAL DOCUMENTATION: JOB ID: [id number] [employer]- All Rights Reserved Reading location - IP/workstation name: [email or web address]
[2019-07-25 15:22] LABS: ABSOLUTE EOSINOPHILS # (AUTO) 0.1 10^3/uL (0.0-0.6); ABSOLUTE LYMPHOCYTES (AUTO) 1.5 10^3/uL (0.5-4.7); ABSOLUTE MONOCYTES (AUTO) 0.4 10^3/uL (0.1-1.4); ABSOLUTE NEUT (AUTO) 2.2 10^3/uL (1.7-8.2); BASOPHILS % (AUTO) 0.9 % (0-2); EOSINOPHILS % (AUTO) 2.5 % (0-6); HEMATOCRIT 41.1 % (36.0-47.0); HEMOGLOBIN 14.2 g/dL (12.0-15.5); LYMPHOCYTES % (AUTO) 34.9 % (13-45); MEAN CORPUSCULAR HEMOGLOBIN 31.8 pg (27.0-33.4); MEAN CORPUSCULAR HGB CONC 34.7 g/dL (32.0-36.0); MEAN CORPUSCULAR VOLUME 92 fl (80-97); MONOCYTES % (AUTO) 8.8 % (3-13); PLATELET COUNT 258 10^3/uL (150-450); RED BLOOD COUNT 4.48 10^6/uL (3.72-5.28); RED CELL DISTRIBUTION WIDTH 13.1 % (11.5-14.0); SEGMENTED NEUTROPHILS % (AUTO) 52.9 % (42-78); TOTAL CELLS COUNTED % (AUTO) 100 %; WHITE BLOOD COUNT 4.2 10^3/uL (4.0-10.5)
[2019-07-25 15:42] LABS: ALBUMIN 4.8 g/dL (3.5-5.0); ALKALINE PHOSPHATASE 58 U/L (38-126); ANION GAP 5 (5-19); ASPARTATE AMINO TRANSFERASE 25 U/L (14-36); BILIRUBIN,TOTAL 0.5 mg/dL (0.2-1.3); BLOOD UREA NITROGEN 9 mg/dL (7-20); CALCIUM 9.4 mg/dL (8.4-10.2); CARBON DIOXIDE 28 mmol/L (22-30); CHLORIDE 104 mmol/L (98-107); CREATINE KINASE 63 U/L (30-135); GLUCOSE 84 mg/dL (75-110); POTASSIUM 3.9 mmol/L (3.6-5.0); TOTAL PROTEIN 7.6 g/dL (6.3-8.2)
[2019-07-25 15:47] LABS: C-REACTIVE PROTEIN < 5.0 mg/L (<10.0)
[2019-07-25 15:51] LABS: NT PRO BNP 44 pg/mL (<125)
[2019-07-25 15:58] LABS: TROPONIN I < 0.012 ng/mL
[2019-07-25 16:46] VITALS: BP 111/70
--- NOTE | 2019-07-25 18:09 | EKG REPORT ---
SEVERITY:- NORMAL ECG - SINUS RHYTHM : Confirmed by: Henok Burks MD 25-Jul-2019 18:08:54
== END 2019-07-25 16:38 | disposition home or self-care (01) ==
LOC: ER 13:11
DX: R07.9 Chest pain, unspecified (principal); R05 Cough; Z20.828 Contact with and (suspected) exposure to other viral communicable diseases; Z88.3 Allergy status to other anti-infective agents; Z88.2 Allergy status to sulfonamides
CPT/HCPCS: 36415; 71045; 80053; 82550; 83880; 84484; 85025; 86140; 93005; 93010; 99284

== ENCOUNTER → 2019-07-25 | Outpatient (CLI) | payer BC ==
[2019-07-25 13:11] VITALS: BP 141/83
--- NOTE | 2019-07-25 13:11 | ER [facility] ASSESSMENT REPORT ---
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 - Symptoms Subjective Fever([place] feverish): Yes Chills: Yes Muscule Aches: Yes Runny Nose: Yes Sore Throat: Yes Cough (New or worsening chronic cough): Yes Shortness of breath: Yes Nausea or Vomiting: Yes Headache: Yes Abdominal Pain: No Diarrhea(3 or more loose stools in last 24 hours): Yes - Do you have any of the following Chronic lung disease: Asthma or emphysema or COPD: No Cystic Fibrosis: No Diabetes: No High Blood Pressure: No Cardiovascular Disease: No Chronic Kidney Disease: No Chronic Liver Disease: No Chronic blood disorder like Sickle Cell Disease: No Weak immune system due to disease or medication: Yes Immune System Comment: lupus Neurologic condition that limits movement: No Developmental delay - Moderate to Severe: No Recent (within past 2 weeks) or current : No Morbid Obesity (>100 pounds over ideal weight): No - Objective Temperature: 97.7 F Pulse Rate: 87 Respiratory Rate: 18 Blood Pressure: 141/83 O2 Sat by Pulse Oximetry: 94 Objective: Given above, testing performed: If Testing Performed: Test Specimen Type Sent to General - General Information source: Patient Notes: Patient presents to the [facility] for screening for upper respiratory symptoms. Patient states that she has had a persistent cough for some time. Patient does have a history of lupus. 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 Patient states that in the doctor's office today her oxygen saturation dropped to 86%. - HPI Onset/Duration: Persistent, Worse Associated symptoms: Body/muscle aches, Chest pain, Chills, Nonproductive cough, Fever, Headache, Nausea, Shortness of breath Exacerbated by: Denies Relieved by: Denies Similar symptoms previously: No - Related Data Allergies/Adverse Reactions: levofloxacin [From Levaquin] Allergy (Verified 04/10/19 10:08) Swollen tongue Sulfa (Sulfonamide Antibiotics) Allergy (Verified 04/10/19 10:08) tramadol [From Ultram] Adverse Reaction (Verified 04/10/19 10:08) Vomiting Past Medical History - General Information source: Patient - Social History Smoking Status: Never Smoker Occupation: medical office Family History: Reviewed & Not Pertinent - Medical History Medical History: Other - lupus - Past Medical History Cardiac Medical History: Denies: Hx Coronary Artery Disease, Hx Heart Attack, Hx Hypertension Pulmonary Medical History: Denies: Hx Asthma, Hx Bronchitis, Hx COPD, Hx Pneumonia Neurological Medical History: Denies: Hx Cerebrovascular Accident, Hx Seizures Musculoskeletal Medical History: Denies Hx Arthritis Past Surgical History: Reports: Hx Tubal Ligation Physical Exam - General General appearance: Appears well, Alert In distress: None - HEENT Head: Normocephalic, Atraumatic Eyes: Normal Conjunctiva: Normal Nasal: Normal Pharynx: Normal Neck: Normal, Supple - Respiratory Respiratory status: No respiratory distress. No: Cyanosis, Labored, Tachypnea Chest status: Nontender Breath sounds: Nonproductive cough. No: Rhonchi, Stridor, Wheezing Chest palpation: Normal - Cardiovascular Rhythm: Regular Heart sounds: S1 appreciated, S2 appreciated - Extremities General upper extremity: Normal inspection General lower extremity: Normal inspection - Neurological Neuro grossly intact: Yes Cognition: Normal [place] Coma Scale Eye Opening: Spontaneous [place] Coma Scale Verbal: Oriented [place] Coma Scale Motor: Obeys Commands [place] Coma Scale Total: 15 - Psychological Associated symptoms: Normal affect, Normal mood - Skin Skin Temperature: Warm Skin Moisture: Dry Skin Color: Normal Diagnostic Results Laboratory Results: The patient was evaluated during the global Covid 19 pandemic, and that diagnosis was suspected/considered upon their initial presentation. Their evaluation, treatment and testing was consistent with current guidelines for patients who present with complaints or symptoms that may be related to Covid 19. Patient presents with upper respiratory symptoms worrisome for possible Covid 19. Patient reports having episode of hypoxia at work prior to arrival. Patient encouraged to go directly to the emergency department for further evaluation at this time. ER was called and notified of her impending arrival. [facility] Discharge - Discharge Clinical Impression: covid 19 screening Upper respiratory infection Qualifiers: URI type: unspecified URI Qualified Code(s): J06.9 - Acute upper respiratory infection, unspecified Condition: Stable Disposition: Home; Selfcare
[2019-07-25 14:24] LABS: A TYPE INFLUENZA AG NEGATIVE (NEGATIVE); B INFLUENZA AG NEGATIVE (NEGATIVE)
== END ==
LOC: RDC 12:28
PROVIDERS: ATTEND Nurse Practitioner Family
DX: J06.9 Acute upper respiratory infection, unspecified (principal); Z20.828 Contact with and (suspected) exposure to other viral communicable diseases; R50.9 Fever, unspecified; R07.9 Chest pain, unspecified; J02.9 Acute pharyngitis, unspecified; R06.02 Shortness of breath; R11.0 Nausea; R09.89 Other specified symptoms and signs involving the circulatory and respiratory systems; R05 Cough; R51 Headache; R19.7 Diarrhea, unspecified; Z88.1 Allergy status to other antibiotic agents; Z88.2 Allergy status to sulfonamides; Z88.3 Allergy status to other anti-infective agents; Z88.6 Allergy status to analgesic agent
CPT/HCPCS: 87070; 87635; 87804; 87880; 99211

== ENCOUNTER 2019-12-06 16:42 | Emergency (ER) | payer BC ==
[2019-12-06 16:52] VITALS: BP 131/80
== END 2019-12-06 19:08 | disposition left against medical advice (07) ==
LOC: ER 16:42
DX: Z53.21 Procedure and treatment not carried out due to patient leaving prior to being seen by health care provider (principal)

== ENCOUNTER → 2020-04-14 | Outpatient (CLI) | payer BC ==
--- NOTE | 2020-04-14 09:54 | ER [facility] ASSESSMENT REPORT ---
Intake - In the Last 14 days Have you traveled outside [place]?: No Have you been in close contact with someone CONFIRMED: Yes Worked in Healthcare?: Yes - Symptoms Subjective Fever([place] feverish): Yes Chills: No Muscule Aches: Yes Runny Nose: No Sore Throat: Yes Cough (New or worsening chronic cough): No Shortness of breath: No Nausea or Vomiting: No Headache: Yes Abdominal Pain: No Diarrhea(3 or more loose stools in last 24 hours): No - Do you have any of the following Chronic lung disease: Asthma or emphysema or COPD: No Cystic Fibrosis: No Diabetes: No High Blood Pressure: No Cardiovascular Disease: No Chronic Kidney Disease: No Chronic Liver Disease: No Chronic blood disorder like Sickle Cell Disease: No Weak immune system due to disease or medication: Yes Immune System Comment: lupus Neurologic condition that limits movement: No Developmental delay - Moderate to Severe: No Recent (within past 2 weeks) or current : No Morbid Obesity (>100 pounds over ideal weight): No - Objective Temperature: 99.1 F Pulse Rate: 69 Respiratory Rate: 17 Blood Pressure: 121/70 O2 Sat by Pulse Oximetry: 95 Objective: Given above, testing performed: If Testing Performed: Test Specimen Type Sent to General - General Information source: Patient Notes: Patient presents to the [facility] for screening for the coronavirus. 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 - Related Data Allergies/Adverse Reactions: levofloxacin [From Levaquin] Allergy (Verified 04/10/19 10:08) Swollen tongue Sulfa (Sulfonamide Antibiotics) Allergy (Verified 04/10/19 10:08) tramadol [From Ultram] Adverse Reaction (Verified 04/10/19 10:08) Vomiting Past Medical History - General Information source: Patient - Social History Smoking Status: Never Smoker Family History: Reviewed & Not Pertinent - Medical History Medical History: Other - Lupus - Past Medical History Cardiac Medical History: Denies: Hx Coronary Artery Disease, Hx Heart Attack, Hx Hypertension Pulmonary Medical History: Denies: Hx Asthma, Hx Bronchitis, Hx COPD, Hx Pneumonia Neurological Medical History: Denies: Hx Cerebrovascular Accident, Hx Seizures Musculoskeletal Medical History: Denies Hx Arthritis Past Surgical History: Reports: Hx Tubal Ligation Physical Exam - Notes Notes: The patient was evaluated during the global Covid 19 pandemic, and that diagnosis was suspected/considered upon their initial presentation. Their evaluation and testing was consistent with current guidelines for patients who present with complaints or symptoms that may be related to Covid 19. Full physical exam could not be performed due to covid 19 isolation protocols. Constitutional: Nontoxic appearance, no acute distress Eyes: Nonicteric, sclera clear Cardiovascular: Heart rate and rhythm regular Respiratory: Breath sounds clear bilaterally, nonlabored breathing, no use of accessory muscles, no tachypnea Gastrointestinal: Abdomen not distended Muculoskeletal: Moves all extremities well Skin: Normal color Neuro: Awake alert oriented, normal speech Psych: Normal mood and affect Diagnostic Results Laboratory Results: Patient presents with upper respiratory symptoms worrisome for possible Covid 19. Patient does not have emergency worrying symptoms such as difficulty breathing, shortness of breath, chest pain, pressure, confusion or cyanosis. Patient appears suitable for discharge as vital signs are stable and patient is nontoxic in appearance. Good return precautions have been discussed with patient, patient verbalized understanding and is agreeable with discharge plan of care at this time. Patient Education/Counseling Counseling/Education: Patient was provided with discharge information including: As a person under investigation for Covid 19, the [place] department of Health and Human Services, division of public health advises you to adhere to the following guidance until your test results are reported to you. If your test result is positive, you will receive additional information from your provider and your local health department at that time. Remain at home until you are cleared by the health provider or public health authorities. Keep a log of visitors to your home, notify any visitors to your home of your isolation status. If you plan to move to a new address or leave the [facility], notify the local health department in your County. Call your doctor or seek care if you have an urgent medical need. Before seeking medical care, call ahead to get instructions from the provider before arriving at the medical office clinic or hospital. Notify them that you are being tested for the virus that causes Covid 19 so that arrangements can be made, as necessary, to prevent transmission to others in the healthcare setting. Next, notify the local health department in your county. If a medical emergency arises and you need to call 911, inform the first responders that you are being tested for the virus that causes Covid 19. Next, notify the local health department in your county. [facility] Discharge - Discharge Clinical Impression: Encounter for screening for COVID-19 Condition: Stable Disposition: Home; Selfcare
[2020-04-14 09:55] VITALS: BP 121/70
[2020-04-14 11:38] LABS: A TYPE INFLUENZA AG NEGATIVE (NEGATIVE); B INFLUENZA AG NEGATIVE (NEGATIVE)
== END ==
LOC: RDC 08:56
PROVIDERS: ATTEND Nurse Practitioner Family
DX: Z20.822 Contact with and (suspected) exposure to COVID-19 (principal); R50.9 Fever, unspecified; J02.9 Acute pharyngitis, unspecified; M32.9 Systemic lupus erythematosus, unspecified; M79.10 Myalgia, unspecified site; R51.9 Headache, unspecified; Z88.1 Allergy status to other antibiotic agents; Z88.6 Allergy status to analgesic agent
CPT/HCPCS: 87070; 87880; 87804; U0003; C9803; 87635; 99211